=== PATIENT | female | born 1960 | race Caucasian/White ===

== ENCOUNTER → 2018-10-03 | Outpatient (CLI) | payer BC | END | disposition home or self-care (01) | LOC: LAB SHORT 15:35 → LAB 15:35 | DX: R19.7 Diarrhea, unspecified (principal) | CPT/HCPCS: 87177; 87209 ==

== ENCOUNTER → 2020-10-12 | Outpatient (CLI) | payer BC ==
[~2020-10-12] MED LIST: Azor 5-20 MG T1 EACH; CHOL10002; DEXILANT30 MG; DEXL60CA3; HYDCHL12.5; LEVSOD50; LORA.5; MELO7.5; METR250; TRAZ50; VENL25
== END ==
LOC: LAB 10:29 → LAB SHORT 10:29
DX: R30.0 Dysuria (principal)
CPT/HCPCS: 87086